=== PATIENT | male | born 1990 | race Hispanic/Latino ===

== ENCOUNTER 2018-02-15 09:23 | Outpatient (CLI) | payer OTHER ==
--- NOTE | 2018-02-15 11:35 | MRI ---
LUMBAR SPINE MRI WITHOUT CONTRAST: DATE: 02/15/2018. COMPARISON: None.. HISTORY: Intervertebral disk disorder with radiculopathy, chronic low back pain with bilateral lower extremity radiculopathy. TECHNIQUE: Multiplanar, multisequence MR imaging of the lumbar spine is provided without contrast. FINDINGS: The sagittal STIR imaging demonstrates no focal area of osseous marrow edema. Lumbar vertebral body height and alignment appears within normal limits. Assuming 5 lumbar-type vertebral bodies, conus medullaris terminates at the T12-L1 level. T12-L1: Unremarkable. L1-2: Unremarkable. L2-3: Unremarkable. L3-4: Unremarkable. L4-5: Unremarkable. L5-S1: Unremarkable. The imaged retroperitoneal structures appear grossly unremarkable. IMPRESSION: No significant central canal or neural foraminal stenosis within the lumbar spine. POS: JOHN
== END 2018-02-15 09:24 | disposition home or self-care (01) ==
LOC: BICMRI 09:23
PROVIDERS: ATTEND Family Medicine
DX: M51.17 Intervertebral disc disorders with radiculopathy, lumbosacral region (principal)
CPT/HCPCS: 72148

== ENCOUNTER 2018-04-05 11:25 | Emergency (ER) | payer OTHER ==
[2018-04-05 11:45] LABS: #Basophils 0.1 thou/uL (0.0-0.2); #Eosinphils 0.4 thou/uL (0.0-0.7); #Lymphocytes 2.6 thou/uL (1.20-3.40); #Monocytes 0.7 thou/uL (0.11-0.59); #Neutrophils 3.7 thou/uL (1.40-6.50); %Basophils 1.4 % (0.0-1.0); %Eosinophils 5.2 % (0.0-10.0); %Lymphocytes 34.7 % (21.0-51.0); %Monocytes 9.8 % (0.0-10.0); %Neutrophils 48.8 % (42.0-75.0); Hemoglobin 16.1 g/dL (14.0-18.0); Mean Corpuscular HGB CONC 32.9 g/dL (32.0-36.0); Mean Corpuscular Hemoglobin 29.2 pg (27.0-31.0); Mean Corpuscular Volume 88.5 fL (78.0-98.0); Platelet Count 257 thou/uL (130-400); Red Blood Cell (RBC) Count 5.51 mill/uL (4.70-6.10); White Blood Cell (WBC) Count 7.6 thou/uL (4.8-10.8)
== END 2018-04-05 12:22 | disposition home or self-care (01) ==
LOC: ERS 11:25
DX: K92.1 Melena (principal); K52.9 Noninfective gastroenteritis and colitis, unspecified; Z79.899 Other long term (current) drug therapy
CPT/HCPCS: 36415; 85025; 99284

== ENCOUNTER 2023-09-16 16:00 | Outpatient (CLI) | payer OTHER | END 2023-09-16 16:01 | disposition home or self-care (01) | LOC: SLEEPLAB 16:00 | PROVIDERS: ATTEND Internal Medicine | DX: G47.33 Obstructive sleep apnea (adult) (pediatric) (principal); R51.9 Headache, unspecified; R09.89 Other specified symptoms and signs involving the circulatory and respiratory systems | CPT/HCPCS: 95800 ==

== ENCOUNTER 2025-03-31 09:09 | Outpatient (CLI) | payer OTHER | END 2025-03-31 09:10 | disposition home or self-care (01) | LOC: SCSMRI 09:09 | PROVIDERS: ATTEND Family Medicine | DX: M47.26 Other spondylosis with radiculopathy, lumbar region (principal) | CPT/HCPCS: 72148 ==